=== PATIENT | male | born 1990 | race Caucasian/White ===

== ENCOUNTER 2017-03-20 22:24 | Emergency (ER) | payer SELFPAY ==
--- NOTE | 2017-03-20 23:51 | C.PDOC ---
History Of Present Illness 26 year old male with Hx of anxiety presents to the ED c/o an anxiety, panic attack that occurred today. Symptoms were resolved prior to evaluation, he denies any physical complaints at the time. Time Seen by Provider: 03/20/17 22:51 Chief Complaint (Nursing): Anxiety History Per: Patient History/Exam Limitations: no limitations Onset/Duration Of Symptoms: Hrs Current Symptoms Are (Timing): Still Present Suicide/Self Injury Attempted (Context): None Modifying Factor(s): None Associated Symptoms: Anxiety. denies: Suicidal Thoughts, Suicidal Plan Recent travel outside of the [place]: No Additional History Per: Patient Past Medical History Reviewed: Historical Data, Nursing Documentation, Vital Signs Vital Signs: Last Vital Signs Temp 97.8 F 03/20/17 22:32 Pulse 85 03/20/17 22:32 Resp 24 03/20/17 22:32 BP 105/78 03/20/17 22:32 Pulse Ox 100 03/21/17 00:14 - Medical History PMH: No Chronic Diseases Surgical History: No Surg Hx Family History: States: Unknown Family Hx - Social History Hx Alcohol Use: No Hx Substance Use: No Review Of Systems Constitutional: Negative for: Fever, Chills Cardiovascular: Negative for: Chest Pain Respiratory: Negative for: Cough, Shortness of Breath Gastrointestinal: Negative for: Nausea, Vomiting, Abdominal Pain Neurological: Negative for: Weakness, Numbness Psych: Positive for: Anxiety. Negative for: Suicidal ideation Physical Exam - Physical Exam Appears: Non-toxic, Other (Thin ) Skin: Normal Color, Warm, Dry Head: Atraumatic, Normacephalic Oral Mucosa: Moist Neck: Normal ROM, Supple Chest: Symmetrical Cardiovascular: Rhythm Regular, No Murmur Respiratory: Normal Breath Sounds, No Rales, No Rhonchi, No Wheezing Gastrointestinal/Abdominal: Soft, No Tenderness Extremity: Normal ROM, No Pedal Edema, No Calf Tenderness, No Swelling Neurological/Psych: Oriented x3, Other (anxious, pressured speech) Gait: Steady ED Course And Treatment ECG: Interpreted By Me ECG Rhythm: Sinus Rhythm ECG Interpretation: Normal Rate From EC O2 Sat by Pulse Oximetry: 100 Pulse Ox Interpretation: Normal Progress Note: xanax 0.25 po, Motrin 600 po Reevaluation Time: 00:13 Reassessment Condition: Improved Medical Decision Making Medical Decision Making: Plan: * Motrin 600 mg Po * Xanax 0.25 mg PO * baseline anxiety with panic attack, 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 No heavy lifting. Prescriptions: ALPRAZolam [Xanax] 0.25 mg PO Q8H PRN #6 tab PRN Reason: panic Instructions: Anxiety (ED), Panic Attack (ED) Forms: [employer] (Iraqi) - Clinical Impression Clinical Impression: Anxiety - Scribe Statement The provider has reviewed the documentation as recorded by the Scribe Eduardo Sutton All medical record entries made by the Scribe were at my direction and personally dictated by me. I have reviewed the chart and agree that the record accurately reflects my personal performance of the history, physical exam, medical decision making, and the department course for this patient. I have also personally directed, reviewed, and agree with the discharge instructions and disposition.
[2017-03-21 00:57] VITALS: BP 126/76; PULSE 88; RESP 20; TEMP 98.1; O2SAT 97
== END 2017-03-21 00:54 | disposition home or self-care (01) ==
LOC: C.ER 22:24
DX: F41.9 Anxiety disorder, unspecified (principal)